=== PATIENT | male | born 1990 | race Two or more races ===

== ENCOUNTER 2016-03-18 10:34 | Emergency (ER) | payer OTHER ==
[2016-03-18 11:11] VITALS: BP 118/80; PULSE 65; TEMP 98.2; BMI 18.8
--- NOTE | 2016-03-18 12:20 | EDPRACDOC ---
- General Information Chief Complaint: Anxiety Illness Stated Complaint: ANXIETY Time Seen by Provider: 03/18/16 11:34 Information Source: Patient Mode of Arrival: Car Home Medications: Home Medications Cefdinir [Omnicef] 300 mg PO BID #20 cap 01/03/13 Sertraline HCl [Zoloft] 50 mg PO DAILY #30 tablet 03/18/16 Allergies/Adverse Reactions: Allergies Allergy/AdvReac Type Severity Reaction Status Date / Time No Known Allergies Allergy Verified 01/03/13 15:26 - History of Present Illness Onset: 3 days HPI: PT PRESENTS TODAY WITH STRESS AT WORK, LOSING WEIGHT D/T NOT EATING, MIGRAINES AND DEPRESSION. 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 STATES THAT SHE WAS SUPPOSE TO HAVE A SURGERY TO FIX THE PROBLEM 10 YEARS AGO, BUT CANNOT AFFORD TO RETURN TO HECTOR AND THE "SURGEONS WON'T TAKE ME HERE BECAUSE THEY TELL ME I NEED TO SEE MY ORIGINAL DOCTORS". ALL OF THE ABOVE FACTORS HAVE LEAD TO INCREASING DEPRESSION, STRESS, MIGRAINES. PT DENIES SI/HI. PT ALSO STATES THAT SHE IS NOT INTEREST IN STARTING MEDICATIONS, THAT SHE WOULD LIKE ADVICE REGARDING "COPING SKILLS". Reason for Seeking Treatment: Self-referral Presents With: Reports: Depression, Anxiety Expresses: Reports: None Suicidal Plan: Reports: None Stressors: Reports: Work Relevant History: Reports: None Associated Signs and Symptoms: Reports: Anxiety, Depression ED Past Medical History - History Reviewed Yes Nurses notes reviewed and agree except as marked - Social Medical History Smoking Status: Never smoker EDM Review of Systems - Review of Systems ROS Negative Except as Marked: Yes All systems reviewed and were negative except as marked Constitutional: No Symptoms Reported Respiratory: No Symptoms Reported Cardiovascular: No Symptoms Reported Gastrointestinal: No Symptoms Reported Neurological: Headache Musculoskeletal: No Symptoms Reported Endocrine: Weight Loss Psychiatric: Anxiety, Depression - Physical Exam Constitutional: Alert (Awake), No apparent distress Oriented to: Time, Person, Place Last recorded Vital Signs: Last Vital Signs Temp 98.2 F 03/18/16 11:07 Pulse 65 03/18/16 11:07 Resp 18 03/18/16 11:07 BP 118/80 03/18/16 11:07 Pulse Ox 97 03/18/16 11:07 Oxygen Pulse Oxygen Saturation 97 O2 Device Oxygen Flow Rate Fraction of Inspired Oxygen ( FIO2) - HEENT Head: Normal Eye Exam: Normal Neck: Normal, Denies Pain, Midline - Respiratory/Cardiovascular Respiratory: Normal - CTA Cardiovascular: Normal - GI Palpation: Normal Tenderness: Non tender - Musculoskeletal Back: Normal Extremities: Normal - Integumentary Skin: Normal Lymphatics: Normal - Neurologic Cerebellar: Normal Mood Description: Appropriate, Calm Thought: Coherent Perception: Normal - Additional Information Additional Information: VIKA FROM CALLED TO SPEAK WITH PT REGARDING COPING MECHANISMS. PT AND VIKA SPOKE FOR SOME TIME REGARDING PTS STRESSORS. PT GIVEN LIST OF COPING STRATEGIES AND OUTPATIENT SERVICES. Decision Time to Discharge: 12:44 - Departure Disposition: Home Condition: Good Final Diagnosis: Depression screening Instructions: Stress (ED), Depression (GEN) Education/Counseling Given To: Patient Education/Counseling Given Regarding: Diagnosis, Treatment, Follow Up Referrals: None,No Provider [Primary Care Provider] - One Week Prescriptions: New Sertraline HCl [Zoloft] 50 mg PO DAILY #30 tablet No Action Cefdinir [Omnicef] 300 mg PO BID #20 cap Forms: Excuse Note Additional Instructions: FOLLOW UP WITH OUTPATIENT SERVICES THAT WERE PROVIDED. RETURN TO ED FOR ANY WORSE/CONCERNING SYMPTOMS.
== END 2016-03-18 13:05 | disposition home or self-care (01) ==
LOC: EEVIPCON 10:34 → EDMC 10:34
DX: Z13.89 Encounter for screening for other disorder (principal)
CPT/HCPCS: 99282